=== PATIENT | female | born 1960 | race Two or more races ===

== ENCOUNTER 2020-03-23 18:18 | Emergency (ER) | payer MEDICAID, OTHER ==
[~2020-03-23] VITALS: Ht 160 cm; Wt 57.6 kg
[~2020-03-23 18:18] MED LIST: ASPI-496 PO; CIPR500T3 PO; GLIP5TAB10 PO; HYDR1TAB13 PO; LISI-170 PO
--- NOTE | 2020-03-23 18:23 | NUR ---
NIL X 1@3840
[2020-03-23] MEDS ORDERED: SODIUM CHLORIDE FLUSH 10ML SYR IVF ONE (19:00)
[2020-03-23] MEDS ORDERED: SODIUM CHLORIDE 0.9% 1,000ML IVBOLUS ONE (19:00)
[2020-03-23] MEDS ORDERED: KETOROLAC 30 MG/1 ML IVPush ONE (19:00)
--- NOTE | 2020-03-23 19:08 | NUR ---
C/O PAIN TO RUQ & RLQ X 2 WEEKS. TOOK TYLENOL 250MG AT 1530. DENIES DYSURIA.
--- NOTE | 2020-03-23 19:09 | NUR ---
TO CT PER JUDIE.
[2020-03-23 19:18] LABS: BASOPHILS # (AUTO) 0.01 x10^3/uL (0-0.1); BASOPHILS % (AUTO) 0 % (0-1); EOSINOPHILS # (AUTO) 0.07 x10^3/uL (0-0.4); EOSINOPHILS % (AUTO) 1 % (1-7); LYMPHOCYTES # (AUTO) 1.83 x10^3/uL (1-3.4); LYMPHOCYTES % (AUTO) 22 % (22-44); MD NO; MEAN CORPUSCULAR HEMOGLOBIN 32.3 pg (27.0-34.8); MEAN CORPUSCULAR HGB CONC 33.5 g/dL (32.4-35.8); MONOCYTES # (AUTO) 0.38 x10^3/uL (0.2-0.8); MONOCYTES % (AUTO) 5 % (2-9); NEUTROPHILS # (AUTO) 5.99 x10^3/uL (1.8-6.8); NEUTROPHILS % (AUTO) 72 % (42-75); PLATELET COUNT 357 x10^3/uL (130-400); RED BLOOD COUNT 4.21 x10^6/uL (3.82-5.3); RED CELL DISTRIBUTION WIDTH 13.1 % (9.6-15.2)
[2020-03-23 19:28] LABS: ALANINE AMINOTRANSFERASE 16 U/L (12-78); ALBUMIN 4.1 g/dL (3.4-5.0); ANION GAP 9 mmol/L (5-15); CALCIUM 9.1 mg/dL (8.5-10.1); CHLORIDE 112 mmol/L (98-107); CREATININE 1.18 mg/dL (0.55-1.02)
[2020-03-23 19:31] LABS: ALKALINE PHOSPHATASE 81 U/L (45-117); BILIRUBIN,TOTAL 1.2 mg/dL (0.2-1.0)
[2020-03-23 19:37] LABS: MICROSCOPIC AUTO
[2020-03-23] MEDS ORDERED: KETOROLAC 30 MG/1 ML ONE (19:51)
[2020-03-23] MEDS ORDERED: LEVETIRACETAM 500 MG TABLET ONE (20:09)
[2020-03-23] MEDS ORDERED: ONDANSETRON 2MG/ML, 2ML ONE (20:09)
[2020-03-23] MEDS ORDERED: ONDANSETRON 2MG/ML, 2ML IVPush ONE (21:00)
[2020-03-23] MEDS ORDERED: LEVOFLOXACIN 500 MG TABLET PO ONE (21:00)
[2020-03-23] MEDS ORDERED: HYDROmorphone 1 MG/ML, 1ML INJ ONE (21:12)
--- NOTE | 2020-03-23 21:20 | NUR ---
LEVAQUIN AND DILAUDID GIVEN PER EMAR.
[2020-03-23] MEDS ORDERED: INSU100I34 SQ (21:24)
[2020-03-23] MEDS ORDERED: HYDROmorphone 1 MG/ML, 1ML INJ IVPush PRN (21:30)
[2020-03-23 21:59] VITALS: BP 148/84
[2020-03-23] MEDS ORDERED: ONDANSETRON ODT 4 MG ONE (22:16)
--- NOTE | 2020-03-23 22:21 | NUR ---
PT TAKEN TO DC AREA PER W/C. VOMITED INTO EMESIS BAG WHILE IN DC AREA. CONSULTED AMELIA SANCHEZ; ORDER FOR ZOFRAN ODT. ZOFRAN GIVEN TO PT IN DC AREA. [facility] CALLED FOR PT TRANSPORT HOME.
[2020-03-23] MEDS ORDERED: ONDANSETRON ODT 4 MG PO ONE (23:00)
== END 2020-03-23 22:24 | disposition home or self-care (01) ==
LOC: ED 18:48
DX: N30.01 Acute cystitis with hematuria (principal); N20.0 Calculus of kidney; I10 Essential (primary) hypertension; E11.9 Type 2 diabetes mellitus without complications
CPT/HCPCS: 36415; 74176; 80053; 81001; 83690; 85025; 87086; 96374; 96375; 99284; J1170; J1885; J2405; J7030

== ENCOUNTER 2020-08-22 05:59 | Observation (INO) | payer MEDICAID ==
[~2020-08-22 05:59] MED LIST changes: +INSU100I34 SQ
[2020-08-22 06:41] VITALS: BP 165/102
[2020-08-22] MEDS ORDERED: morphine SULFATE 10 MG/ML, 1ML IVPush PRN (07:00)
[2020-08-22] MEDS ORDERED: ONDANSETRON 2MG/ML, 2ML IVPush PRN ×2 (07:00→16:30)
[2020-08-22] MEDS ORDERED: hydrALAzine 20 MG/ML, 1ML IVPush PRN (07:00)
[2020-08-22] MEDS ORDERED: LACTATED RINGERS 1,000 ML IV SCH ×2 (07:00→18:30)
[2020-08-22] MEDS ORDERED: ONDANSETRON ODT 4 MG PO PRN (07:00)
[2020-08-22] MEDS ORDERED: ACETAMINOPHEN 325 MG TABLET PO PRN ×2 (07:00→16:30)
[2020-08-22] MEDS ORDERED: KETOROLAC 30 MG/1 ML IV PRN (07:00)
[2020-08-22] MEDS ORDERED: LABETALOL 5MG/ML, 20ML IVPush PRN (07:00)
[2020-08-22 07:31] LABS: BASOPHILS % (AUTO) 1 % (0-1); EOSINOPHILS % (AUTO) 0 % (1-7); LYMPHOCYTES % (AUTO) 7 % (22-44); MEAN CORPUSCULAR HGB CONC 33.2 g/dL (32.4-35.8); MEAN PLATELET VOLUME 8.9 fL (7.4-10.4); MONOCYTES % (AUTO) 2 % (2-9); NEUTROPHILS % (AUTO) 90 % (42-75); PLATELET COUNT 329 x10^3/uL (130-400); RED BLOOD COUNT 4.31 x10^6/uL (3.82-5.3); RED CELL DISTRIBUTION WIDTH 13.1 % (9.6-15.2)
[2020-08-22 07:35] LABS: ANION GAP 5 mmol/L (5-15); CALCIUM 8.4 mg/dL (8.5-10.1); CHLORIDE 113 mmol/L (98-107); CREATININE 1.17 mg/dL (0.55-1.02)
[2020-08-22 07:51] LABS: MD SCAN
[2020-08-22 08:40] VITALS: BP 162/92
[2020-08-22] MEDS ORDERED: LOSA25TA12 PO (10:02)
[2020-08-22] MEDS: INSULIN LISPRO 100 UNITS/ML, PEN SQ-INSULIN SCH ×2 (11:00→18:40)
[2020-08-22 13:27] VITALS: BP 163/88
[2020-08-22] MEDS ORDERED: CHLORHEXIDINE 15 ML UDC ONE (14:07)
[2020-08-22] MEDS ORDERED: FENTANYL PF 250 MCG/5ML ONE (14:49)
[2020-08-22] MEDS ORDERED: PROPOFOL 10 MG/ML, 20ML ONE (15:12)
[2020-08-22] MEDS ORDERED: CEFAZOLIN 1,000 MG ONE (15:12)
[2020-08-22] MEDS ORDERED: EPHEDRINE 50 MG/ML, 1ML ONE (15:12)
[2020-08-22] MEDS ORDERED: DEXAMETHASONE 4 MG/ML, 1ML ONE (15:12)
[2020-08-22] MEDS ORDERED: ONDANSETRON 2MG/ML, 2ML ONE (15:12)
[2020-08-22] MEDS ORDERED: METOCLOPRAMIDE 5 MG/ML, 2ML ONE (15:12)
[2020-08-22] MEDS ORDERED: METHOCARBAMOL 1,000 MG in DEXTROSE 5% 100 ML IV PRN (16:30)
[2020-08-22] MEDS ORDERED: HALOPERIDOL 5 MG/ML IV PRN (16:30)
[2020-08-22] MEDS ORDERED: hydrALAzine 20 MG/ML, 1ML IV PRN (16:30)
[2020-08-22] MEDS ORDERED: EPHEDRINE 50 MG/ML, 1ML IVPush PRN (16:30)
[2020-08-22] MEDS ORDERED: LABETALOL 5MG/ML, 20ML IV PRN (16:30)
[2020-08-22] MEDS ORDERED: MEPERIDINE/PF 25MG/0.5ML IVPush PRN (16:30)
[2020-08-22] MEDS ORDERED: PLEASE ENTER HEIGHT AND WEIGHT MC SCH (16:30)
[2020-08-22] MEDS ORDERED: PROMETHAZINE 25 MG/ML, 1ML IVPush PRN (16:30)
[2020-08-22] MEDS ORDERED: EPHEDRINE 50 MG/ML, 1ML IM PRN (16:30)
[2020-08-22] MEDS ORDERED: OXYcodone 5 MG/5 ML ORAL.SOL UDC PO PRN (16:30)
[2020-08-22] MEDS ORDERED: HYDROmorphone 1 MG/ML, 1ML INJ IVPush PRN (16:30)
[2020-08-22] MEDS ORDERED: FENTANYL PF 100 MCG/2ML IV PRN (16:30)
[2020-08-22] MEDS ORDERED: LORazepam 2 MG/ML, 1ML IVPush PRN (16:30)
[2020-08-22] MEDS ORDERED: PROMETHAZINE 25 MG/ML, 1ML ONE (16:44)
[2020-08-22] MEDS ORDERED: morphine SULFATE 10 MG/ML, 1ML IV PRN (18:30)
[2020-08-22] MEDS ORDERED: ONDANSETRON 2MG/ML, 2ML IV PRN (18:30)
[2020-08-22 19:07] VITALS: BP 133/77
[2020-08-23] MEDS ORDERED: INSULIN GLARGINE 100 UNITS/ML, PEN SQ-INSULIN SCH (09:00)
== END 2020-08-22 21:00 | disposition home or self-care (01) ==
LOC: INTOOBSV 06:17 → 4NW 06:17
PROVIDERS: ADMIT Internal Medicine; ATTEND Internal Medicine
DX: N13.2 Hydronephrosis with renal and ureteral calculous obstruction (principal); Z20.828 Contact with and (suspected) exposure to other viral communicable diseases; N28.89 Other specified disorders of kidney and ureter; I10 Essential (primary) hypertension; E11.9 Type 2 diabetes mellitus without complications; Z87.442 Personal history of urinary calculi; Z79.899 Other long term (current) drug therapy; Z88.0 Allergy status to penicillin; Z79.4 Long term (current) use of insulin
CPT/HCPCS: 36415; 52353; 74018; 80048; 82360; 82962; 83735; 85025; 87040; 87635; 88300; 96361; 96374; G0378; J0690; J1100; J1885; J2405; J2550; J2704; J2765; J3010; J7120; 76000

== ENCOUNTER 2020-08-23 14:46 | Emergency (ER) | payer MEDICAID ==
[~2020-08-23] VITALS: Ht 160 cm; Wt 60.2 kg
[~2020-08-23 14:46] MED LIST changes: +LOSA25TA12 PO
--- NOTE | 2020-08-23 15:12 | NUR ---
PATIENT WHEELED BACK FROM TRIAGE WITH CHIEF C/O OF LEFT FLANK PAIN. PATIENT WAS HERE YESTERDAY FOR CYSTOSCOPY WITH LITHOTRIPSY/STONE EXTRACTION SURGERY AND WAS LET GO YESTERDAY. PATIENT REPORTS HER LEFT FLANK HAS BEEN PAINFUL SINCE BEING RELEASED, HER PAIN LEVEL IS A 7/10 AND REPORTS HER ABDOMEN IS SWOLLEN. PATIENT REPORTS PAIN WITH URINATION WELL. ABD IS PAINFUL TO PALPATATION, NADN, VSS, CALL LIGHT WITHIN REACH.
[2020-08-23] MEDS ORDERED: ONDANSETRON 2MG/ML, 2ML ONE (15:49)
[2020-08-23] MEDS ORDERED: MORPHINE SULFATE 4 MG/ML, 1ML ONE (15:49)
[2020-08-23] MEDS ORDERED: ONDANSETRON 2MG/ML, 2ML IVPush ONE (16:00)
[2020-08-23] MEDS ORDERED: MORPHINE SULFATE 4 MG/ML, 1ML IVPush PRN (16:00)
[2020-08-23] MEDS ORDERED: SODIUM CHLORIDE FLUSH 10ML SYR IVF ONE (16:00)
--- NOTE | 2020-08-23 16:05 | NUR ---
20 GAUGE IV STARTED LEFT AC, PATIENT MEDICATED PER eMAR. PATIENT AMBULATED TO BATHROOM FOR URINE SAMPLE.
[2020-08-23 16:17] LABS: BASOPHILS % (AUTO) 1 % (0-1); EOSINOPHILS % (AUTO) 1 % (1-7); LYMPHOCYTES % (AUTO) 17 % (22-44); MEAN CORPUSCULAR HEMOGLOBIN 32.6 pg (27.0-34.8); MEAN CORPUSCULAR HGB CONC 33.8 g/dL (32.4-35.8); MEAN PLATELET VOLUME 8.7 fL (7.4-10.4); MONOCYTES % (AUTO) 6 % (2-9); NEUTROPHILS % (AUTO) 76 % (42-75); PLATELET COUNT 235 x10^3/uL (130-400); RED BLOOD COUNT 2.92 x10^6/uL (3.82-5.3); RED CELL DISTRIBUTION WIDTH 12.7 % (9.6-15.2)
[2020-08-23 16:22] LABS: MICROSCOPIC AUTO
[2020-08-23 16:24] LABS: ALBUMIN 3.7 g/dL (3.4-5.0); ANION GAP 5 mmol/L (5-15); CALCIUM 8.9 mg/dL (8.5-10.1); CHLORIDE 110 mmol/L (98-107); CREATININE 1.42 mg/dL (0.55-1.02)
[2020-08-23 16:32] LABS: MD NO
--- NOTE | 2020-08-23 16:54 | NUR ---
PATIENT TO CT.
[2020-08-23] MEDS ORDERED: OMNIPAQUE 350 MG/ML, 100ML BOTTLE ONE (17:05)
--- NOTE | 2020-08-23 17:35 | NUR ---
PATIENT AMBULATED TO BATHROOM WITH STEADY GAIT.
--- NOTE | 2020-08-23 19:04 | NUR ---
UROLOGY BEING PAGED TO DISCUSS POC WITH DR. DEL RIO. PAT[place] S[place]ING IN [place], NADN, VSS, CALL LIGHT WITHIN REACH, NO FURTHER NEEDS AT THIS TIME.
[2020-08-23] MEDS ORDERED: KETOROLAC 30 MG/1 ML ONE (19:20)
[2020-08-23 19:24] VITALS: BP 149/82
[2020-08-23] MEDS ORDERED: KETOROLAC 30 MG/1 ML IVPush ONE (19:30)
--- NOTE | 2020-08-23 19:32 | NUR ---
Patient given discharge instructions and prescription and they have confirmed that they understand the instructions. Patient stable and ambulatory with steady gait from ED to taxi.
== END 2020-08-23 19:33 | disposition home or self-care (01) ==
LOC: ED 16:45
DX: N23 Unspecified renal colic (principal); I10 Essential (primary) hypertension; E11.65 Type 2 diabetes mellitus with hyperglycemia; Z90.49 Acquired absence of other specified parts of digestive tract
CPT/HCPCS: 36415; 74177; 80048; 81001; 82040; 85025; 87086; 96374; 96375; 99285; J1885; J2270; J2405; Q9967

== ENCOUNTER 2021-01-28 13:15 | Inpatient (IN) | payer MEDICAID ==
[~2021-01-28] VITALS: Ht 160 cm; Wt 60.5 kg
[~2021-01-28 13:15] MED LIST changes: -CIPR500T3 PO; +CIPR500T4 PO
[2021-01-28] MEDS ORDERED: KETOROLAC 30 MG/1 ML ONE (14:23)
[2021-01-28] MEDS ORDERED: MORPHINE SULFATE 4 MG/ML, 1ML ONE ×2 (14:23→15:16)
[2021-01-28] MEDS ORDERED: ONDANSETRON 2MG/ML, 2ML ONE (14:23)
[2021-01-28] MEDS ORDERED: KETOROLAC 30 MG/1 ML IVPush ONE (14:30)
[2021-01-28] MEDS ORDERED: ONDANSETRON 2MG/ML, 2ML IVPush ONE (14:30)
[2021-01-28] MEDS ORDERED: SODIUM CHLORIDE 0.9% 1,000ML IV ONE (14:30)
[2021-01-28] MEDS ORDERED: SODIUM CHLORIDE FLUSH 10ML SYR IVF ONE (14:30)
[2021-01-28] MEDS: MORPHINE SULFATE 4 MG/ML, 1ML IVPush PRN ×2 (14:31→15:20)
[2021-01-28 14:39] LABS: BASOPHILS % (AUTO) 1 % (0-1); EOSINOPHILS % (AUTO) 0 % (1-7); LYMPHOCYTES % (AUTO) 6 % (22-44); MEAN CORPUSCULAR HEMOGLOBIN 32.3 pg (27.0-34.8); MEAN CORPUSCULAR HGB CONC 33.6 g/dL (32.4-35.8); MEAN PLATELET VOLUME 8.8 fL (7.4-10.4); MONOCYTES % (AUTO) 2 % (2-9); NEUTROPHILS % (AUTO) 91 % (42-75); PLATELET COUNT 348 x10^3/uL (130-400); RED BLOOD COUNT 4.44 x10^6/uL (3.82-5.3); RED CELL DISTRIBUTION WIDTH 12.8 % (9.6-15.2)
[2021-01-28 14:47] LABS: ALANINE AMINOTRANSFERASE 19 U/L (12-78); ANION GAP 9 mmol/L (5-15); CALCIUM 8.8 mg/dL (8.5-10.1); CHLORIDE 109 mmol/L (98-107); CREATININE 0.93 mg/dL (0.55-1.02)
[2021-01-28 14:48] LABS: ALKALINE PHOSPHATASE 89 U/L (45-117); BILIRUBIN,TOTAL 1.1 mg/dL (0.2-1.0)
[2021-01-28 14:59] LABS: MD SCAN
--- NOTE | 2021-01-28 15:15 | NUR ---
TASK RN: VLADIMIR UA OBTAINED -WALKED TO LAB PAIN REMAINS 06/15 POST MEDICATION- RE-MEDICATED PER EMAR ERP MADE AWARE OF ELEVATED LACTATE-ASKED FOR FLUID/ABX APPROPRIATE. ERP CONSIDERING
[2021-01-28 15:30] LABS: MICROSCOPIC AUTO
--- NOTE | 2021-01-28 16:15 | NUR ---
ADMITTING MD IS AT THE BEDSIDE FOR CONSULT
[2021-01-28] MEDS ORDERED: KETAMINE 10 MG/ML, 20ML ONE (16:28)
[2021-01-28] MEDS ORDERED: KETOROLAC 30 MG/1 ML IV PRN (16:30)
[2021-01-28] MEDS ORDERED: NS + 40MEQ KCL 1,000 ML IV SCH (16:30)
[2021-01-28] MEDS ORDERED: HEPARIN 5,000 UNITS/ML, 1ML SQ SCH (16:30)
[2021-01-28] MEDS ORDERED: ONDANSETRON ODT 4 MG PO PRN (16:30)
[2021-01-28] MEDS ORDERED: morphine SULFATE 10 MG/ML, 1ML IVPush PRN (16:30)
[2021-01-28] MEDS ORDERED: ONDANSETRON 2MG/ML, 2ML IVPush PRN (16:30)
[2021-01-28] MEDS ORDERED: CIPROFLOXACIN/PMX 400MG/200ML 200 ML ONE (16:44)
[2021-01-28] MEDS: CIPROFLOXACIN/PMX 400MG/200ML 200 ML IV SCH (16:47)
--- NOTE | 2021-01-28 17:30 | NUR ---
VERBAL SBAR EXCHANGED Ronel HOFFMAN (YFN) ON THE FLOOR FOR ADMISSION. WE WILL BEGIN TO PREPARE FOR TRANSPORT AT THIS TIME.
[2021-01-28] MEDS ORDERED: NS + 40MEQ KCL 1,000 ML IV ONE (17:46)
[2021-01-28] MEDS: ACETAMINOPHEN 325 MG TABLET PO SCH ×2 (18:38→22:30)
[2021-01-28 20:02] VITALS: BP 171/96
[2021-01-28] MEDS ORDERED: ENALAPRILAT 1.25 MG/ML, 1ML IV ONE (20:30)
[2021-01-28 20:49] VITALS: BP 159/95
[2021-01-28] MEDS: INSULIN LISPRO 100 UNITS/ML, PEN SQ-INSULIN SCH (21:00)
[2021-01-28] MEDS ORDERED: ATORVASTATIN 40 MG TABLET PO SCH (21:00)
[2021-01-29 01:07] VITALS: BP 142/84
[2021-01-29] MEDS: ACETAMINOPHEN 325 MG TABLET PO SCH ×3 (04:30→16:28)
[2021-01-29] MEDS: CIPROFLOXACIN/PMX 400MG/200ML 200 ML IV SCH ×2 (05:01→16:28)
[2021-01-29 05:12] VITALS: BP 162/95
[2021-01-29 05:26] LABS: BASOPHILS % (AUTO) 1 % (0-1); EOSINOPHILS % (AUTO) 1 % (1-7); LYMPHOCYTES % (AUTO) 21 % (22-44); MEAN CORPUSCULAR HEMOGLOBIN 32.6 pg (27.0-34.8); MEAN CORPUSCULAR HGB CONC 33.8 g/dL (32.4-35.8); MEAN PLATELET VOLUME 9.1 fL (7.4-10.4); MONOCYTES % (AUTO) 7 % (2-9); NEUTROPHILS % (AUTO) 71 % (42-75); PLATELET COUNT 368 x10^3/uL (130-400); RED BLOOD COUNT 4.55 x10^6/uL (3.82-5.3)
[2021-01-29 05:29] LABS: MD NO
[2021-01-29 05:36] LABS: ANION GAP 5 mmol/L (5-15); CALCIUM 8.6 mg/dL (8.5-10.1); CHLORIDE 110 mmol/L (98-107)
[2021-01-29 05:38] LABS: CREATININE 0.99 mg/dL (0.55-1.02)
[2021-01-29] MEDS: INSULIN LISPRO 100 UNITS/ML, PEN SQ-INSULIN SCH ×3 (07:00→16:12)
[2021-01-29 07:19] VITALS: BP 162/91
[2021-01-29 07:30] VITALS: BP 119/56
[2021-01-29] MEDS ORDERED: SODIUM CHLORIDE 0.9% 1,000 ML IV SCH (07:30)
[2021-01-29] MEDS: CARVEDILOL 3.125 MG TABLET PO SCH ×2 (10:25→18:08)
[2021-01-29 13:28] VITALS: BP 127/83
[2021-01-29] MEDS ORDERED: ATOR40TA78 PO (15:09)
[2021-01-29] MEDS ORDERED: CIPR500T87 PO (15:09)
[2021-01-29] MEDS ORDERED: CARV3.1212 PO (15:09)
[2021-01-29] MEDS ORDERED: ASPI81TA45 PO (15:11)
== END 2021-01-29 18:41 | disposition home or self-care (01) | DRG 690 ==
LOC: ED 14:23 → EDIP 16:28 → 3N 18:11
PROVIDERS: ADMIT Internal Medicine; ATTEND Internal Medicine
DX: N13.6 Pyonephrosis (principal); E11.9 Type 2 diabetes mellitus without complications; E87.6 Hypokalemia; I10 Essential (primary) hypertension; Z82.49 Family history of ischemic heart disease and other diseases of the circulatory system; Z83.3 Family history of diabetes mellitus; Z86.73 Personal history of transient ischemic attack (TIA), and cerebral infarction without residual deficits; Z87.442 Personal history of urinary calculi; Z90.710 Acquired absence of both cervix and uterus; Z90.49 Acquired absence of other specified parts of digestive tract; Z88.0 Allergy status to penicillin; Z88.2 Allergy status to sulfonamides; Z88.8 Allergy status to other drugs, medicaments and biological substances; G47.30 Sleep apnea, unspecified
CPT/HCPCS: 36415; 74176; 76770; 80048; 80053; 81001; 82962; 83036; 83605; 83735; 85025; 87086; 99285; G0378; J0744; J1885; J2405; J2270; J3480; J7030